=== PATIENT | female | born 1975 | race Caucasian/White ===

== ENCOUNTER 2021-01-23 17:42 | Emergency (ER) | payer BC, SELFPAY ==
[2021-01-23 17:53] VITALS: BP 153/88; PULSE 98; RESP 16; TEMP 36.8; O2SAT 99
--- NOTE | 2021-01-23 17:54 | ED.ABDPAIN ---
HPI - Abdominal Pain General Chief Complaint: Abdominal Pain Stated Complaint: abdominal pain Time Seen by Provider: 01/23/21 17:44 Source: patient, family and RN notes reviewed History of Present Illness HPI narrative: Patient is a 45-year-old female who presents the urgent care with her spouse with complaints of lower abdominal pain and low back pain for approximately 1 week. Patient states gotten much worse in the last 24 to 48 hours. Patient states that she has tried Tylenol and ibuprofen the last couple days without any improvement and therefore did not take anything for her pain today. Patient reports of nausea without vomiting. Denies of any blood in the urine but states she has had urinary frequency and urgency. Patient has had a history of obstructing kidney stone in the past, which needed to be surgically removed. Patient is in obvious acute pain. Aware of the plan of care. Some parts of this dictation were generated by voice recognition software and may contain typographical and/or grammatical inaccuracies. Related Data Home Medications Medication Instructions Recorded Confirmed losartan 01/23/21 Allergies Allergy/AdvReac Type Severity Reaction Status Date / Time No Known Allergies Allergy Verified 01/23/21 17:52 Review of Systems Review of Systems: CONSTITUTIONAL: Denies fever, chills, or sweats. EYES: Denies visual changes, redness, or discharge. ENT: Denies rhinorrhea, congestion, sore throat, or otalgia. CARDIOVASCULAR: Denies chest pain, palpitations, or edema. RESPIRATORY: Denies cough or dyspnea. GASTROINTESTINAL: Reports of lower abdominal pain and nausea GENITOURINARY: Reports of urinary frequency and urgency SKIN: Denies rash or itching. MUSCULOSKELETAL: Reports of bilateral flank pain NEUROLOGIC: Denies headache, numbness, or weakness. All other systems reviewed are negative, except as documented in HPI. PMFSH Comments At the time of my signature, I reviewed and agree with the nursing past medical, surgical, social, and family history. There is no relevant family history pertinent to the patient complaint. Exam Narrative: GENERAL: This is a well-nourished, well-developed patient, in no apparent distress. HEAD: normocephalic, atraumatic. EYES: PERRL. Sclera clear/white. Vision is grossly intact. EARS: External ears normal NOSE: External nose normal with no obvious nasal discharge, nares without redness, no rhinorrhea. THROAT: Mucous membranes moist NECK: Neck supple CARDIOVASCULAR: Regular rate and rhythm without murmurs, gallops, or rubs. RESPIRATORY: Clear to auscultation. Breath sounds equal bilaterally. No wheezes, rales, or rhonchi. GASTROINTESTINAL: Abdomen soft, diffuse lower abdominal tenderness/suprapubic, nondistended. Bowel sounds are active. guarding. SKIN: warm, intact with no suspicious lesions or rash, good texture and turgor. NEURO: awake, alert, and oriented to person, place and time. There were no obvious focal neurologic abnormalities. EXTREMITIES: No clubbing, cyanosis, or edema. BACK: Bilateral CVA tenderness Course Vital Signs Vital signs: Vital Signs Temperature 98.3 F 01/23/21 17:53 Pulse Rate 98 01/23/21 17:53 Respiratory Rate 16 01/23/21 17:53 Blood Pressure 153/88 H 01/23/21 17:53 Pulse Oximetry 99 01/23/21 17:53 Temperature 98.3 F 01/23/21 17:53 Pulse Rate 98 01/23/21 17:53 Respiratory Rate 16 01/23/21 17:53 Blood Pressure 153/88 H 01/23/21 17:53 Pulse Oximetry 99 01/23/21 17:53 Reviewed-patient is informed that they may have pre-hypertension or hypertension based on a blood pressure reading in the department. I recommend the patient call the primary care provider listed on their discharge instructions or a physician of their choice this week to arrange follow-up for further evaluation of possible pre-hypertension or hypertension. Transfer Transfered to: Fly Transfer rationale: Lower abdominal pain, severe flank pa
== END 2021-01-23 18:03 | disposition short-term general hospital (02) ==
PROVIDERS: Emergency Provider Nurse Practitioner Family
DX: R10.30 Lower abdominal pain, unspecified (principal)
CPT/HCPCS: 81003; 81025; 99213; G0463

== ENCOUNTER 2021-01-23 18:21 | Emergency (ER) | payer BC, SELFPAY ==
--- NOTE | ~2021-01-23 | CT_ITS ---
EXAMINATION: CT abdomen pelvis w con DATE: 01/23/2021 21:01 INDICATION: Left lower quadrant abdominal pain. TECHNIQUE: Computed tomography (CT) of the abdomen and pelvis was performed with 100 mL Omnipaque 350 intravenous contrast. Automated exposure control and iterative reconstruction technique were employe d. The dose-length product was 885.24 mGy-cm. COMPARISON: None. FINDINGS: The visualized portions of the lung bases are clear without pneumonia or pleural effusion. The heart size is normal. No pericardial effusion. There is mild intrahepatic biliary duct dilatation , likely secondary to cholecystectomy. The spleen, pancreas, and adrenal glands are normal. There are cysts in the kidneys measuring up to 14 mm on the right. There are scattered diverticula in the colo n. There is fat stranding around a diverticulum of sigmoid colon with local bowel wall thickening, co nsistent with diverticulitis. There are no dilated loops of bowel. The appendix is normal. There are no pathologically enlarged lymph nodes. There is no free intraperitoneal fluid. There is infraumbilic al subcutaneous scarring. There is mild thoracic and lumbar spondylosis. IMPRESSION: 1. Acute sigmoid diverticulitis. No perforation or abscess. Reviewed, dictated and finalized at location A.
[2021-01-23 18:22] VITALS: BP 144/113; PULSE 93; RESP 14; TEMP 36.2; O2SAT 99
[2021-01-23 18:45] VITALS: BP 132/62; PULSE 87; RESP 11; O2SAT 97
[2021-01-23 19:32] VITALS: BP 137/95; PULSE 86; RESP 19; O2SAT 95
[2021-01-23] MEDS: SODIUM CHLORIDE 0.9% IV 1,000 ML 999 ML IV CONT (20:00)
[2021-01-23] MEDS: MORPHINE SULFATE (*CRX) 4 MG/ML INJ IV PUSH ×2 (20:00→21:42)
--- NOTE | 2021-01-23 20:02 | ED.ABDPAIN ---
HPI - Abdominal Pain General Chief Complaint: Abdominal Pain Stated Complaint: abd pain Time Seen by Provider: 01/23/21 19:03 History of Present Illness HPI narrative: Patient is a 45-year-old female who presents ER with left lower quadrant abdominal pain. Patient reports pain began about a week ago but went away and then returned tonight. It is very intense. She has reports left flank pain. Has history of kidney stones in the past. No nausea or vomiting. No fevers or chills or sweats. Denies urinary frequency urgency or hematuria. No alleviating factors that she is found. Related Data Home Medications Medication Instructions Recorded Confirmed losartan 01/23/21 Allergies Allergy/AdvReac Type Severity Reaction Status Date / Time Penicillins Allergy Swelling Verified 01/23/21 19:08 of Lip/Tongue/Throat Review of Systems Review of Systems: All systems reviewed & are unremarkable except as noted in HPI and below Constitutional: Constitutional: Denies chills, Denies fever(s) and Denies weakness Cardiovascular: Cardiovascular: Denies chest pain and Denies radiating jaw, neck or arm pain Respiratory: Respiratory: Denies cough and Denies dyspnea Gastrointestinal: Gastrointestinal: Reports abdominal pain, Denies constipation, Denies diarrhea, Denies nausea and Denies vomiting PMFSH Past Medical History Medical History (Updated 01/23/21 @ 21:33 by Rigo Goyal MD) Celiac disease Hypertension Kidney stones Surgical History Surgical History (Updated 01/23/21 @ 20:11 by Rigo Goyal MD) History of colonoscopy History of lithotripsy Social History Social History (Updated 01/23/21 @ 20:04 by Rigo Goyal MD) Smoking status: Never smoker Exam Narrative: GENERAL: Well-appearing, well-nourished, and in no acute distress. HEAD: Normocephalic, atraumatic. EYES: PERRL and EOMI. CHEST: Clear to auscultation. No respiratory distress. HEART: Regular rate and rhythm. Normal peripheral pulses. ABDOMEN: Soft, tender palpation left lower quadrant, nondistended, bilateral flank pain EXTREMITIES: Normal range of motion. No edema. SKIN: Warm, dry, no rash. NEURO: Alert and oriented x3. PSYCH: Normal mood and affect. Course Vital Signs Vital signs: Vital Signs Temperature 97.2 F L 01/23/21 18:22 Pulse Rate 93 01/23/21 18:22 Respiratory Rate 14 01/23/21 18:22 Blood Pressure 144/113 H 01/23/21 18:22 Pulse Oximetry 99 01/23/21 18:22 Temperature 97.2 F L 01/23/21 18:22 Pulse Rate 97 01/23/21 21:04 Respiratory Rate 15 01/23/21 21:04 Blood Pressure 137/95 H 01/23/21 19:32 Pulse Oximetry 100 01/23/21 21:04 MDM - Abdominal Pain Lab Data Result diagrams: 01/23/21 19:57 01/23/21 19:57 Labs: Lab Results 01/23/21 01/23/21 01/23/21 Range/Units 19:57 19:57 21:06 WBC 12.6 H (4.5-10.0) K/mm3 RBC 5.02 (4.2-5.4) M/mm3 Hgb 14.4 (12.0-15.0) g/dL Hct 44.8 (37.0-47.0) % MCV 89.2 (80-100) fl MCH 28.7 (26-34) pg MCHC 32.1 (32-36) g/dl RDW 13.3 (11.5-14.5) % Plt Count 434 H (150-375) k/mm3 MPV 10.4 (7.4-10.4) fl Immature Gran % (Auto) 0.2 (0-0.5) % Neut % (Auto) 68.7 (45.5-73.1) % Lymph % (Auto) 22.2 (18.3-44.2) % Banner % (Auto) 7.5 (2.6-8.5) % Eos % (Auto) 1.0 (0-4.4) % Baso % (Auto) 0.4 (0.2-1.2) % Lymph # (Auto) 2.81 (0.9-3.2) K/mm3 Banner # (Auto) 1.0 H (0.1-0.6) K/mm3 Eos # (Auto) 0.1 (0-0.3) K/mm3 Baso # (Auto) 0.1 (0.0-0.1) K/mm3 Abs Immat Gran (auto) 0.03 (0.00-0.031) K/mm3 Absolute Neuts (auto) 8.7 H (1.3-6.7) K/mm3 Absolute Nucleated RBC 0.0 (0.0-0.012) K/mm3 Nucleated RBC % 0.0 (0.0-0.2) % Sodium 139 (137-145) mmol/L Potassium 4.0 (3.4-5.0) mmol/L Chloride 106 (98-107) mmol/L Carbon Dioxide 23 (22-30) mmol/L Anion Gap 10 (8-16) mmol/L BUN 11 (7-17) mg/dL Creatinine
[2021-01-23 20:40] LABS: Basophils Absolute Auto 0.1 K/mm3 (0.0-0.1); Basophils Percent Auto 0.4 % (0.2-1.2); Eosinophils Absolute Auto 0.1 K/mm3 (0-0.3); Hematocrit 44.8 % (37.0-47.0); Hemoglobin 14.4 g/dL (12.0-15.0); Immature Granulocyte Absolute 0.03 K/mm3 (0.00-0.031); Immature Granulocyte Percent A 0.2 % (0-0.5); Lymphocytes Absolute Auto 2.81 K/mm3 (0.9-3.2); Lymphocytes Percent Auto 22.2 % (18.3-44.2); Mean Corpuscular HGB Conc 32.1 g/dl (32-36); Mean Corpuscular Hemoglobin 28.7 pg (26-34); Mean Corpuscular Volume 89.2 fl (80-100); Mean Platelet Volume 10.4 fl (7.4-10.4); Monocytes Percent Auto 7.5 % (2.6-8.5); Neutrophils Absolute Auto 8.7 K/mm3 (1.3-6.7); Neutrophils Percent Auto 68.7 % (45.5-73.1); Platelet Count Result 434 k/mm3 (150-375); Red Blood Count 5.02 M/mm3 (4.2-5.4); Red Cell Distribution Width 13.3 % (11.5-14.5); White Blood Count 12.6 K/mm3 (4.5-10.0)
[2021-01-23 20:48] LABS: Alanine Aminotransferase 24 U/L (4-35); Albumin Level 4.5 g/dL (3.5-5.1); Alkaline Phosphatase 97 U/L (38-126); Anion Gap 10 mmol/L (8-16); Aspartate Amino Transferase 29 U/L (14-36); Blood Urea Nitrogen 11 mg/dL (7-17); Calcium 8.9 mg/dL (8.4-10.2); Carbon Dioxide 23 mmol/L (22-30); Chloride 106 mmol/L (98-107); Estimated CRCL calculation 102 ml/min; Estimated Glomerular Filt Rate > 60; Glucose 89 mg/dL (65-110); Lipase 70 U/L (23-300); Sodium 139 mmol/L (137-145)
[2021-01-23 21:04] VITALS: PULSE 97; RESP 15; O2SAT 100
[2021-01-23 21:28] LABS: Add Urine Microscopic? NO; Appearance Urine Clear (Clear); Bilirubin Urine Negative (Negative); Blood Urine Negative (Negative); Color Urine Yellow (Yellow); Glucose Urine UA Negative (Negative); Ketones Urine Negative (Negative); Leukocyte Esterase Ur Negative LEU/UL (Negative); Nitrate Urine Negative (Negative); Protein Urine Negative (Negative); Specific Grav Ur 1.017 (1.001-1.035); Urobilinogen Urine Negative mg/dL (<2.0)
[2021-01-23 22:05] VITALS: BP 131/77; PULSE 97; RESP 20; TEMP 36.8; O2SAT 100
== END 2021-01-23 22:05 | disposition home or self-care (01) ==
PROVIDERS: Physician Assistant; Emergency Provider Emergency Medicine
DX: K57.32 Diverticulitis of large intestine without perforation or abscess without bleeding (principal); K90.0 Celiac disease; I10 Essential (primary) hypertension; Z87.442 Personal history of urinary calculi
CPT/HCPCS: 36415; 74177; 80053; 81003; 81025; 83690; 85025; 96361; 96374; 96375; 99284; J2270; J7030; Q9967